=== PATIENT | male | born 1955 | race Hispanic/Latino ===

== ENCOUNTER 2017-11-26 05:13 | Observation (INO) | payer OTHER ==
[~2017-11-26] VITALS: Ht 182.9 cm; Wt 93.0 kg
[~2017-11-26 05:13] MED LIST: ALLO300T2 PO; AMLO1CAP12 PO; ASPI-1181 PO; ATOR20TA65 PO; NAPR-1023 PO; OMEP40CA37 PO; cholesterol med PO
[2017-11-26 05:37] LABS: BASOPHILS % (AUTO) 0.9 % (0.0-5.0); EOSINOPHILS % (AUTO) 5.2 % (0.0-8.0); MEAN CORPUSCULAR HEMOGLOBIN 32.4 pg (27.0-33.0); MEAN CORPUSCULAR VOLUME 92.5 fL (79-99); MONOCYTES % (AUTO) 8.7 % (3.0-13.0); NEUTROPHILS % (AUTO) 57.2 % (40.0-77.0); PLATELET COUNT (AUTO) 243 K/uL (130-400); RED BLOOD CELL COUNT(AUTO) 4.54 MIL/uL (4.50-6.20); RED CELL DISTRIBUTION WIDTH 12.9 % (11.0-15.5); WHITE BLOOD COUNT (AUTO) 5.8 K/uL (4.8-10.8)
[2017-11-26 05:45] LABS: POTASSIUM 3.5 mmol/L (3.5-5.1)
[2017-11-26 05:50] LABS: ALBUMIN 4.1 g/dL (3.5-5.0); BILIRUBIN,TOTAL 0.6 mg/dL (0.2-1.0)
[2017-11-26] MEDS ORDERED: ONDANSETRON HCL 4 MG/2 ML VIAL ONE (07:16)
[2017-11-26] MEDS ORDERED: FENTANYL CITRATE PF 50 MCG/1 ML 2ML VIAL ONE (07:17)
[2017-11-26 07:45] VITALS: BP 158/86
[2017-11-26] MEDS ORDERED: PHENYLEPHRINE HCL 10 MG/ML 1ML VIAL IV ONE (07:56)
[2017-11-26] MEDS ORDERED: SODIUM CHLORIDE 0.9% 1000ML 1,000 ML IV ONE (09:27)
[2017-11-26] MEDS ORDERED: FAMOTIDINE 20MG TAB 20 MG TAB ONE (09:27)
[2017-11-26] MEDS ORDERED: SODIUM CHLORIDE 0.9% 1000ML 1,000 ML IV SCH (09:45)
[2017-11-26] MEDS ORDERED: MORPHINE SULFATE 2 MG/ML 1ML SYG IVP PRN (11:15)
[2017-11-26] MEDS ORDERED: FAMOTIDINE/PF 20 MG/2 ML VIAL IV SCH (21:00)
== END 2017-11-26 16:19 | disposition home or self-care (01) ==
LOC: EDH 05:13 → EDHIP 07:35
PROVIDERS: ADMIT Family Medicine; ATTEND Family Medicine
DX: K21.0 Gastro-esophageal reflux disease with esophagitis (principal); K25.9 Gastric ulcer, unspecified as acute or chronic, without hemorrhage or perforation; K26.9 Duodenal ulcer, unspecified as acute or chronic, without hemorrhage or perforation; I10 Essential (primary) hypertension; E78.5 Hyperlipidemia, unspecified; M10.9 Gout, unspecified; T18.108A Unspecified foreign body in esophagus causing other injury, initial encounter; X58.XXXA Exposure to other specified factors, initial encounter; Y93.89 Activity, other specified; Y92.89 Other specified places as the place of occurrence of the external cause; Y99.8 Other external cause status; Z96.698 Presence of other orthopedic joint implants
CPT/HCPCS: 36415; 43239; 80053; 82550; 84484; 85025; 88305; 88312; 93005; 99285; G0378 ×9; J2370; J2405; J3010; J7030

== ENCOUNTER 2017-12-13 06:01 | Emergency (ER) | payer OTHER ==
[2017-12-13] MEDS ORDERED: GLUCAGON 1MG KIT 1 MG ML ONE (06:27)
[2017-12-13 07:37] LABS: BASOPHILS % (AUTO) 0.9 % (0.0-5.0); EOSINOPHILS % (AUTO) 5.7 % (0.0-8.0); HEMATOCRIT 43.4 % (42-54); LYMPHOCYTES % (AUTO) 29.3 % (21.0-51.0); MEAN CORPUSCULAR HEMOGLOBIN 32.3 pg (27.0-33.0); MEAN CORPUSCULAR HGB CONC 34.6 g/dL (32.0-36.0); MEAN CORPUSCULAR VOLUME 93.2 fL (79-99); MONOCYTES % (AUTO) 9.5 % (3.0-13.0); NEUTROPHILS % (AUTO) 54.6 % (40.0-77.0); PLATELET COUNT (AUTO) 247 K/uL (130-400); RED BLOOD CELL COUNT(AUTO) 4.65 MIL/uL (4.50-6.20); RED CELL DISTRIBUTION WIDTH 13.1 % (11.0-15.5); WHITE BLOOD COUNT (AUTO) 6.2 K/uL (4.8-10.8)
[2017-12-13 08:33] LABS: CREATININE 0.9 mg/dL (0.5-1.5); POTASSIUM 3.9 mmol/L (3.5-5.1)
[2017-12-13 08:37] LABS: BILIRUBIN,TOTAL 0.6 mg/dL (0.2-1.0); TOTAL PROTEIN, SERUM 7.8 g/dL (6.0-8.3)
[2017-12-13] MEDS ORDERED: FENTANYL CITRATE PF 50 MCG/1 ML 2ML VIAL ONE (08:51)
[2017-12-13] MEDS ORDERED: PROPOFOL 10 MG/ML 20ML VIAL IV ONE (08:51)
== END 2017-12-13 10:28 | disposition home or self-care (01) ==
LOC: EDH 06:01
DX: T18.128A Food in esophagus causing other injury, initial encounter (principal); I10 Essential (primary) hypertension; X58.XXXA Exposure to other specified factors, initial encounter; Y93.89 Activity, other specified; Y92.89 Other specified places as the place of occurrence of the external cause; Y99.8 Other external cause status
CPT/HCPCS: 36415; 43247; 80053; 85025; 96374; 99284; J1610; J2704; J3010

== ENCOUNTER 2018-04-14 06:17 | Day surgery (SDC) | payer OTHER ==
[2018-04-12 15:47] VITALS: BP 100/62
[2018-04-12 15:56] LABS: BASOPHILS % (AUTO) 0.9 % (0.0-5.0); EOSINOPHILS % (AUTO) 2.1 % (0.0-8.0); HEMATOCRIT 40.2 % (42-54); LYMPHOCYTES % (AUTO) 25.7 % (21.0-51.0); MEAN CORPUSCULAR HEMOGLOBIN 32.3 pg (27.0-33.0); MEAN CORPUSCULAR HGB CONC 34.9 g/dL (32.0-36.0); MEAN CORPUSCULAR VOLUME 92.4 fL (79-99); MONOCYTES % (AUTO) 8.8 % (3.0-13.0); NEUTROPHILS % (AUTO) 62.5 % (40.0-77.0); PLATELET COUNT (AUTO) 223 K/uL (130-400); RED BLOOD CELL COUNT(AUTO) 4.35 MIL/uL (4.50-6.20); RED CELL DISTRIBUTION WIDTH 13.1 % (11.0-15.5); WHITE BLOOD COUNT (AUTO) 6.2 K/uL (4.8-10.8)
[2018-04-12 15:58] LABS: APPEARANCE,URINE Clear (CLEAR); BILIRUBIN,URINE Negative (NEGATIVE); COLOR,URINE Yellow (YELLOW); GLUCOSE, URINE (UA) Negative (NEGATIVE); KETONES,URINE Negative (NEGATIVE); LEUKOCYTE ESTERASE ,URINE Negative (NEGATIVE); NITRATE,URINE Negative (NEGATIVE); OCCULT BLOOD,URINE Negative (NEGATIVE); PH,URINE 5.5 (5.0-8.0); PROTEIN,URINE Negative (NEGATIVE)
[2018-04-12 16:10] LABS: CREATININE 1.2 mg/dL (0.5-1.5); POTASSIUM 4.2 mmol/L (3.5-5.1)
[~2018-04-14] VITALS: Ht 182.9 cm; Wt 94.3 kg
[2018-04-14] VITALS (17 sets, daily range): BP systolic 74–111; BP diastolic 46–92
[~2018-04-14 06:17] MED LIST changes: -ALLO300T2 PO; -ASPI-1181 PO; -ATOR20TA65 PO; +CEFAZOLIN SODIUM 1 GM VIAL IVP SCH; -OMEP40CA37 PO; -cholesterol med PO
[2018-04-14] MEDS ORDERED: LACTATED RINGERS 1000ML 1,000 ML IV ONE (07:05)
[2018-04-14] MEDS ORDERED: ROPIVACAINE 0.5% 5MG/ML 30ML IJ ONE (07:51)
[2018-04-14] MEDS ORDERED: PROPOFOL 10 MG/ML 20ML VIAL IV ONE (07:52)
[2018-04-14] MEDS ORDERED: FENTANYL CITRATE PF 50 MCG/1 ML 2ML VIAL ONE (07:52)
[2018-04-14] MEDS ORDERED: MIDAZOLAM HCL 1 MG/ML 2ML VIAL ONE (07:52)
[2018-04-14] MEDS ORDERED: MEPERIDINE-PF 25 MG/ML SYG ONE (10:04)
== END 2018-04-14 12:36 | disposition home or self-care (01) ==
LOC: DAH 06:17
PROVIDERS: ATTEND Surgery
DX: K40.20 Bilateral inguinal hernia, without obstruction or gangrene, not specified as recurrent (principal); I10 Essential (primary) hypertension; M10.9 Gout, unspecified
CPT/HCPCS: 36415; 49505; 80048; 81003; 85025; A4450; A4452; C1729; C1781; J2175; J2250; J2704; J2795; J3010; J7120

== ENCOUNTER 2019-01-13 09:39 | Day surgery (SDC) | payer OTHER ==
[2019-01-12 16:26] LABS: CREATININE 1.3 mg/dL (0.5-1.5); POTASSIUM 4.1 mmol/L (3.5-5.1)
[2019-01-12 16:28] VITALS: BP 121/75
[~2019-01-13] VITALS: Ht 182.9 cm; Wt 100.7 kg
[2019-01-13] VITALS (16 sets, daily range): BP systolic 96–137; BP diastolic 61–87
[~2019-01-13 09:39] MED LIST changes: +AMLO-127 PO; -AMLO1CAP12 PO; +ATOR20TA65 PO; +CEFAZOLIN 3GM /D5W 100ML 100 ML IV SCH; -CEFAZOLIN SODIUM 1 GM VIAL IVP SCH; +TIZA4TAB4 PO; +TYL3 PO
[2019-01-13] MEDS ORDERED: CEFAZOLIN SODIUM 1 GM VIAL ONE (12:31)
[2019-01-13] MEDS ORDERED: LACTATED RINGERS 1000ML 1,000 ML IV ONE (12:31)
[2019-01-13] MEDS ORDERED: LIDOCAINE PF 2% 5ML ABBOJECT ONE (13:54)
[2019-01-13] MEDS ORDERED: FENTANYL CITRATE PF 50 MCG/1 ML 2ML VIAL ONE ×2 (13:55→14:58)
[2019-01-13] MEDS ORDERED: PROPOFOL 10 MG/ML 20ML VIAL IV ONE (13:55)
[2019-01-13] MEDS ORDERED: MIDAZOLAM HCL 1 MG/ML 2ML VIAL ONE (13:55)
[2019-01-13] MEDS ORDERED: ONDANSETRON HCL 4 MG/2 ML VIAL ONE (13:55)
[2019-01-13] MEDS ORDERED: DEXAMETHASONE SOD PHOSPHATE 10MG/ML 1ML VIAL ONE (13:55)
[2019-01-13] MEDS ORDERED: EPINEPHRINE 1 MG/ML 30ML VIAL IJ ONE (13:57)
[2019-01-13] MEDS ORDERED: ROCURONIUM 10MG/1ML SYR 10 MG/ML ML ONE ×2 (14:03→14:41)
[2019-01-13] MEDS ORDERED: ROPIVACAINE 0.5% 5MG/ML 30ML IJ ONE (14:05)
[2019-01-13] MEDS ORDERED: EPHEDRINE SULFATE 50 MG/ML AMPULE ONE (14:14)
[2019-01-13] MEDS ORDERED: PHENYLEPHRINE HCL 10 MG/ML 1ML VIAL IV ONE ×2 (14:25→14:27)
[2019-01-13] MEDS ORDERED: GLYCOPYRROLATE 1 MG/5 ML SYRINGE ONE (15:05)
[2019-01-13] MEDS ORDERED: NEOSTIGMINE 5MG/5ML SYR IV ONE (15:45)
[2019-01-13] MEDS ORDERED: HYDR-4457 PO (16:00)
[2019-01-13] MEDS ORDERED: CEPH500B PO (16:00)
--- NOTE | 2019-01-13 16:56 | NUR ---
RECEIVE PT RECEIVED FROM PACU VIA STRETCHER AWAKE ALERT ORIENTED X3. OPSITE/GAUZE DRESSING X3 TO RIGHT SHOULDER DRY AND INTACT, NO OOZING NOTED. SLING TO RIGHT ARM IN PLACE. SENSATION TO RIGHT ARM/HAND INTACT, PT ABLE TO MOVE FINGERS, GRASP WEAK, CAPILLARY REFILLS BRISK. ICE PACK APPLIED TO SITE. CALL CUNHA WITHIN REACH, WILL CALL FOR GIRL FRIEND TO COME IN TO ROOM.
--- NOTE | 2019-01-13 17:35 | NUR ---
NOTIFY PT STATES HE FEELS SOME TIGHTNESS TO RIGHT SHOULDER AREA, DENIES CHEST PAIN. NOTIFIED BARBI SOLO. ALSO NOTIFIED INSTRUMENT MAN PT'S HEART RATE IN THE MID TO HIGH 90'S. PT HAS NO OTHER COMPLAINTS EXCEPT THAT HE JUST FEELS WEAK. PT NOT IN ANY APPARENT DISTRESS. NO ORDERS, OKAY TO DISCHARGE.
--- NOTE | 2019-01-13 18:00 | NUR ---
ASSESS PT OFFERED ORAL FLUIDS AND CRACKERS. PT TOLERATED ORAL INTAKE WELL. PT STATES HE FEELS A LOT BETTER. NO MORE TIGHTNESS TO RIGHT SHOULDER AREA, DENIES CHEST PAIN. NOT IN ANY APPARENT DISTRESS.
--- NOTE | 2019-01-13 18:05 | NUR ---
DISCHARGE PT DISCHARGED VIA WHEELCHAIR WITH GIRL FRIEND. PT STABLE. NO COMPLAINTS MADE. STATED HE FEELS A LOT BETTER. NOT IN ANY APPARENT DISTRESS. DRESSINGS X3 TO RIGHT SHOULDER REMAINS DRY AND INTACT. DISCHARGE INSTRUCTIONS GIVEN TO GIRL FRIEND AND PT, BOTH VERBALIZED UNDERSTANDING. Addendum: 01/13/19 at 1939 by APOLONIA DOTSON RN RN ADDENDUM: INSTRUCTED PT AND TO CALL DR. MOORE 17/05 FOR ANY PROBLEMS, FOR ANY EMERGENCY,WORSENING OF SYMPTOMS, CALL DR. MOORE/CALL 911/GO TO EMERGENCY ROOM. VERBALIZED UNDERSTANDING.
== END 2019-01-13 18:05 | disposition home or self-care (01) ==
LOC: DAH 09:39
PROVIDERS: ATTEND Orthopaedic Surgery
DX: M75.101 Unspecified rotator cuff tear or rupture of right shoulder, not specified as traumatic (principal); M19.011 Primary osteoarthritis, right shoulder; Z68.30 Body mass index [BMI] 30.0-30.9, adult; I10 Essential (primary) hypertension; E66.9 Obesity, unspecified; Z98.890 Other specified postprocedural states; Z79.899 Other long term (current) drug therapy; M75.41 Impingement syndrome of right shoulder; E11.9 Type 2 diabetes mellitus without complications; E78.2 Mixed hyperlipidemia
CPT/HCPCS: 29824; 29826; 29827; 36415; 80048; A4218; A4565; A4649 ×5; A4930; A6204; C1763; G0168; J0171; J0690; J1100; J2001; J2250; J2370 ×2; J2405; J2704; J2710; J2795; J3010 ×2; J3490 ×2; J7120

== ENCOUNTER 2020-03-26 16:39 | Emergency (ER) | payer OTHER ==
[~2020-03-26 16:39] MED LIST changes: -AMLO-127 PO; +AMLO-96 PO; -CEFAZOLIN 3GM /D5W 100ML 100 ML IV SCH; +CEPH500B PO; +HYDR-4457 PO; -TIZA4TAB4 PO; +TIZA4TAB5 PO; -TYL3 PO
== END 2020-03-26 17:46 | disposition home or self-care (01) ==
LOC: EDH 16:39
DX: K02.9 Dental caries, unspecified (principal); I10 Essential (primary) hypertension; Z98.890 Other specified postprocedural states

== ENCOUNTER 2020-06-12 20:05 | Inpatient (IN) | payer OTHER ==
[~2020-06-12] VITALS: Ht 182.9 cm; Wt 92.3 kg
[2020-06-12 21:04] LABS: APPEARANCE,URINE Clear (CLEAR); BILIRUBIN,URINE Negative (NEGATIVE); COLOR,URINE Dark Yellow (YELLOW); GLUCOSE, URINE (UA) Negative (NEGATIVE); KETONES,URINE Negative (NEGATIVE); LEUKOCYTE ESTERASE ,URINE Small (NEGATIVE); NITRATE,URINE Negative (NEGATIVE); OCCULT BLOOD,URINE Negative (NEGATIVE); PROTEIN,URINE POS 1+ mg/dL (NEGATIVE)
[2020-06-12 21:04] LABS: BASOPHILS % (AUTO) 0.4 % (0.0-5.0); EOSINOPHILS % (AUTO) 1.6 % (0.0-8.0); HEMATOCRIT 40.6 % (42-54); LYMPHOCYTES % (AUTO) 26.3 % (21.0-51.0); MEAN CORPUSCULAR HEMOGLOBIN 31.4 pg (27.0-33.0); MEAN CORPUSCULAR HGB CONC 34.2 g/dL (32.0-36.0); MEAN CORPUSCULAR VOLUME 91.9 fL (79-99); MONOCYTES % (AUTO) 11.6 % (3.0-13.0); NEUTROPHILS % (AUTO) 58.5 % (40.0-77.0); PLATELET COUNT (AUTO) 296 K/uL (130-400); RED BLOOD CELL COUNT(AUTO) 4.42 MIL/uL (4.50-6.20); RED CELL DISTRIBUTION WIDTH 12.6 % (11.0-15.5); WHITE BLOOD COUNT (AUTO) 5.1 K/uL (4.8-10.8)
[2020-06-12 21:09] LABS: INR 0.93 (0.85-1.15); PARTIAL THROMBOPLASTIN TIME 26.8 SEC (26.3-35.5); PROTHROMBIN TIME 10.1 SEC (9.6-11.6)
[2020-06-12 21:23] LABS: CARBON DIOXIDE 26 mmol/L (21-32); CHLORIDE 104 mmol/L (101-111); CREATININE 0.9 mg/dL (0.5-1.5); GLOMERULAR FILTR. RATE CALC 91 mL/min (>60); GLUCOSE,RANDOM 124 mg/dL (70-105); POTASSIUM 3.3 mmol/L (3.5-5.1); SODIUM SERUM 141 mmol/L (136-145); UREA NITROGEN, BLOOD 15 mg/dL (7-18)
[2020-06-12 21:32] LABS: RBC,URINE 0-1 /HPF (0-1)
[2020-06-12 21:33] LABS: BACTERIA,URINE Few /HPF (None Seen); MUCUS,URINE Moderate LPF (None Seen); SQUAMOUS EPITHELIAL CELL,UR Few /HPF (0-2)
[2020-06-12 21:34] LABS: ALANINE AMINOTRANSFERASE 248 U/L (12-78); ASPARTATE AMINOTRANSFERASE 216 U/L (10-37); CREATINE KINASE, TOTAL 32 U/L (21-232); MYOGLOBIN 19 ng/mL (10-92); TOTAL PROTEIN, SERUM 8.3 g/dL (6.0-8.3); TROPONIN I < 0.04 ng/mL (0.00-0.06)
[2020-06-12] MEDS ORDERED: DEXAMETHASONE SOD PHOSPHATE 10MG/ML 1ML VIAL ONE (21:36)
[2020-06-12] MEDS ORDERED: POTASSIUM BICARB/CIT AC 25 MEQ TABLET.EFF ONE (21:36)
[2020-06-12] MEDS ORDERED: DOXYCYCLINE 100MG+NS 250ML 250 ML IV ONE (21:36)
[2020-06-12] MEDS ORDERED: CEFTRIAXONE SODIUM 1 GM ONE (21:37)
[2020-06-12] MEDS ORDERED: LACTULOSE 20 GM/30 ML UDCUP PO PRN (22:15)
[2020-06-12] MEDS ORDERED: ZOLPIDEM TARTRATE 5 MG TAB PO PRN (22:15)
[2020-06-12] MEDS ORDERED: MORPHINE SULFATE 4 MG/1ML SYG IV PRN (22:15)
[2020-06-12] MEDS ORDERED: DiphenhydrAMINE HCL 50 MG/ML VIAL IV PRN (22:15)
[2020-06-12] MEDS ORDERED: MORPHINE SULFATE 2 MG/ML 1ML SYG IV PRN (22:15)
[2020-06-12] MEDS ORDERED: GUAIFENESIN-DM 200/20 MG 10 ML PO PRN (22:15)
[2020-06-12] MEDS ORDERED: ONDANSETRON HCL 4 MG/2 ML VIAL IV PRN (22:15)
[2020-06-12] MEDS ORDERED: DIPHENHYDRAMINE HCL 25 MG CAPSULE PO PRN (22:15)
[2020-06-12] MEDS ORDERED: ACETAMINOPHEN 325 MG TAB PO PRN ×2 (22:15)
[2020-06-12] MEDS ORDERED: MAG HYDROX/AL HYDROX/SIMETH ES 30 ML SUSP UDCUP PO PRN (22:15)
[2020-06-12] MEDS ORDERED: MAG HYDROX/AL HYDROX/SIMETH 30 ML, LIDOCAINE HCL 2% VISCOUS 30 ML, DIPHENHYDRAMINE HCL ... PO PRN ×3 (22:15)
[2020-06-12] MEDS ORDERED: NITROGLYCERIN 0.4 MG SL TAB SL PRN (22:15)
[2020-06-12] MEDS ORDERED: LIDOCAINE HCL 2% VISCOUS 30 ML, MAG HYDROX/AL HYDROX/SIMETH 30 ML, BELLADONNA-PHENOBARB... PO PRN ×3 (22:15)
[2020-06-12] MEDS ORDERED: BENZONATATE 100 MG CAPSULE PO PRN (22:15)
[2020-06-12] MEDS ORDERED: IOHEXOL 350 MG/ML 100ML INFUS..BTL IV ONE (22:33)
[2020-06-13] VITALS (9 sets, daily range): BP systolic 111–131; BP diastolic 72–93
[2020-06-13] MEDS ORDERED: MAGNESIUM 2GM PREMIX 50ML 50 ML IV SCH (01:15)
[2020-06-13] MEDS ORDERED: DEXAMETHASONE SOD PHOSPHATE 4 MG/ML 1ML VIAL IVP SCH (01:45)
[2020-06-13] MEDS ORDERED: ERGOCALCIFEROL (VITAMIN D2) 50,000 UNIT CAPSULE PO ONE (01:45)
[2020-06-13] MEDS: CEFTRIAXONE SODIUM 1 GM IVP SCH ×2 (01:45→13:26)
[2020-06-13] MEDS: DOXYCYCLINE 100MG+NS 250ML IV SCH ×2 (02:38→15:20)
[2020-06-13] MEDS: LACTATED RINGERS 1000ML 1,000 ML IV SCH ×2 (02:54→04:42)
[2020-06-13 05:31] LABS: BASOPHILS % (AUTO) 0.4 % (0.0-5.0); HEMATOCRIT 40.9 % (42-54); MEAN CORPUSCULAR HEMOGLOBIN 30.9 pg (27.0-33.0); MEAN CORPUSCULAR HGB CONC 33.5 g/dL (32.0-36.0); MEAN CORPUSCULAR VOLUME 92.1 fL (79-99); MONOCYTES % (AUTO) 4.8 % (3.0-13.0); NEUTROPHILS % (AUTO) 68.9 % (40.0-77.0); PLATELET COUNT (AUTO) 308 K/uL (130-400); RED BLOOD CELL COUNT(AUTO) 4.44 MIL/uL (4.50-6.20); RED CELL DISTRIBUTION WIDTH 12.5 % (11.0-15.5); WHITE BLOOD COUNT (AUTO) 4.8 K/uL (4.8-10.8)
[2020-06-13 06:05] LABS: ALANINE AMINOTRANSFERASE 222 U/L (12-78); ALBUMIN 2.9 g/dL (3.5-5.0); ASPARTATE AMINOTRANSFERASE 176 U/L (10-37); BILIRUBIN,TOTAL 0.5 mg/dL (0.2-1.0); CARBON DIOXIDE 25 mmol/L (21-32); CHLORIDE 104 mmol/L (101-111); CREATINE KINASE, TOTAL 28 U/L (21-232); GLOMERULAR FILTR. RATE CALC 80 mL/min (>60); GLUCOSE,RANDOM 142 mg/dL (70-105); LACTATE DEHYDROGENASE 261 U/L (81-234); MYOGLOBIN 25 ng/mL (10-92); PHOSPHORUS 3.5 mg/dL (2.5-4.9); SODIUM SERUM 138 mmol/L (136-145); TOTAL PROTEIN, SERUM 8.3 g/dL (6.0-8.3); TROPONIN I < 0.04 ng/mL (0.00-0.06); UREA NITROGEN, BLOOD 16 mg/dL (7-18)
[2020-06-13] MEDS ORDERED: ENOXAPARIN SODIUM 40 MG/0.4 ML SYRINGE SQ SCH (09:00)
[2020-06-13] MEDS: FAMOTIDINE/PF 20 MG/2 ML VIAL IV SCH ×2 (09:14→21:19)
[2020-06-13] MEDS: ASCORBIC ACID 500 MG TAB PO SCH (09:14)
[2020-06-13] MEDS: ZINC SULFATE 220 CAPSULE PO SCH (09:14)
[2020-06-13] MEDS: AMLODIPINE-BENAZEPRIL 5-20 MG PO SCH (10:13)
--- NOTE | 2020-06-13 12:43 | NUR ---
YUSUF PLAN VISITED WITH PATIENT. SPOKE TO PATIENT OVER THE PHONE SINCE HE IS IN THE COVID UNIT. SAID HE HAD ALREADY ANSWERED SAME QUESTIONS WITH SOMEONE ELSE. NO CHANGES. LIVES ALONE AND WORKS. GAVE FEDERICO FOR OXYGEN IF NEEDED. GOT IZABELLA NURSE TO COSIGN FORM. FORD WILL CONTINUE TO MONITOR. Addendum: 06/13/20 at 1245 by KAMLESH JOYCE RN CM Amended: Links added.
[2020-06-13] MEDS ORDERED: SODIUM CHLORIDE 0.9% 250 ML IV ONE (12:47)
[2020-06-13] MEDS ORDERED: LACTATED RINGERS 1000ML 1,000 ML IV SCH (13:45)
--- NOTE | 2020-06-13 14:04 | NUR ---
CHART CHECK COMPLETED. Pt IS A 65 Y.O. MALE ADMITTED SECONDARY TO COVID19 PNEUMONIA, HYPOXEMIA. Pt HAS A PAST MEDICAL HISTORY SIGNIFICANT FOR HYPERTENSION. Pt CURRENTLY ON CLEAR LIQUID DIET. PLEASE REQUEST FORMAL SKILLED SPEECH/SWALLOW EVALUATION IF Pt PRESENTS WITH +S/S OF ASPIRATION SUCH COUGH RESPONSE, THROAT CLEAR, OR WET VOCAL QUALITY DURING P.O. Addendum: 06/13/20 at [address] Amended: Links added.
[2020-06-13 14:39] LABS: CREATINE KINASE, TOTAL 29 U/L (21-232); MYOGLOBIN 24 ng/mL (10-92); TROPONIN I < 0.04 ng/mL (0.00-0.06)
--- NOTE | 2020-06-13 14:39 | NUR ---
CONVALESCENT PLASMA PATIENT RECEIVED PLASMA STARTING AT APPROX 1400 HOURS AND ENDING AT APPROX 1430 HOURS. PATIENT TOLERATED WITHOUT INCIDENT.
[2020-06-13] MEDS: ENOXAPARIN SODIUM 100 MG/1 ML SQ SCH (21:19)
[2020-06-14 00:16] VITALS: BP 125/76
[2020-06-14 03:58] LABS: ABG BASE EXCESS 0.1 mmol/L (-2.0-3.0); ABG HCO3 23.7 mmol/L (21.0-28.0); ABG OXYGEN SATURATION 97.5 % (95.0-99.0); ABG PCO2 35 mmHg (35-48)
[2020-06-14 04:18] VITALS: BP 105/69
[2020-06-14 05:20] LABS: BASOPHILS % (AUTO) 0.4 % (0.0-5.0); EOSINOPHILS % (AUTO) 0.5 % (0.0-8.0); HEMATOCRIT 38.9 % (42-54); LYMPHOCYTES % (AUTO) 18.8 % (21.0-51.0); MEAN CORPUSCULAR HEMOGLOBIN 30.8 pg (27.0-33.0); MEAN CORPUSCULAR HGB CONC 33.7 g/dL (32.0-36.0); MEAN CORPUSCULAR VOLUME 91.5 fL (79-99); MONOCYTES % (AUTO) 11.8 % (3.0-13.0); NEUTROPHILS % (AUTO) 66.8 % (40.0-77.0); PLATELET COUNT (AUTO) 313 K/uL (130-400); RED BLOOD CELL COUNT(AUTO) 4.25 MIL/uL (4.50-6.20); RED CELL DISTRIBUTION WIDTH 12.5 % (11.0-15.5); WHITE BLOOD COUNT (AUTO) 7.7 K/uL (4.8-10.8)
[2020-06-14 05:33] LABS: ALANINE AMINOTRANSFERASE 191 U/L (12-78); ALBUMIN 2.9 g/dL (3.5-5.0); ASPARTATE AMINOTRANSFERASE 105 U/L (10-37); BILIRUBIN,TOTAL 0.5 mg/dL (0.2-1.0); CARBON DIOXIDE 28 mmol/L (21-32); CHLORIDE 105 mmol/L (101-111); CREATININE 0.9 mg/dL (0.5-1.5); GLOMERULAR FILTR. RATE CALC 91 mL/min (>60); GLUCOSE,RANDOM 89 mg/dL (70-105); LACTATE DEHYDROGENASE 228 U/L (81-234); PHOSPHORUS 4.1 mg/dL (2.5-4.9); POTASSIUM 4.1 mmol/L (3.5-5.1); SODIUM SERUM 141 mmol/L (136-145); TOTAL PROTEIN, SERUM 7.6 g/dL (6.0-8.3); UREA NITROGEN, BLOOD 13 mg/dL (7-18)
[2020-06-14] MEDS: AMLODIPINE-BENAZEPRIL 5-20 MG PO SCH (09:00)
[2020-06-14] MEDS ORDERED: DOXYCYCLINE 100MG+NS 250ML IV SCH (09:00)
[2020-06-14 09:02] VITALS: BP 112/73
[2020-06-14] MEDS: DOXYCYCLINE 100MG+NS 250ML 250 ML IV SCH ×2 (09:36→21:03)
[2020-06-14] MEDS: CEFTRIAXONE SODIUM 1 GM IVP SCH ×2 (09:38→21:03)
[2020-06-14] MEDS: FAMOTIDINE/PF 20 MG/2 ML VIAL IV SCH ×2 (09:38→21:03)
[2020-06-14] MEDS: ASCORBIC ACID 500 MG TAB PO SCH (09:38)
[2020-06-14] MEDS: DEXAMETHASONE SOD PHOSPHATE 4 MG/ML 1ML VIAL IVP SCH (09:38)
[2020-06-14] MEDS: ZINC SULFATE 220 CAPSULE PO SCH (09:38)
[2020-06-14] MEDS: ENOXAPARIN SODIUM 100 MG/1 ML SQ SCH ×2 (10:02→21:04)
[2020-06-14 12:00] VITALS: BP 118/75
[2020-06-14 16:00] VITALS: BP 108/84
[2020-06-14 20:31] VITALS: BP 105/71
[2020-06-15] VITALS (7 sets, daily range): BP systolic 68–129; BP diastolic 68–89
[2020-06-15 05:07] LABS: BASOPHILS % (AUTO) 0.1 % (0.0-5.0); EOSINOPHILS % (AUTO) 0.3 % (0.0-8.0); HEMATOCRIT 39.2 % (42-54); LYMPHOCYTES % (AUTO) 15.6 % (21.0-51.0); MEAN CORPUSCULAR HEMOGLOBIN 30.8 pg (27.0-33.0); MEAN CORPUSCULAR HGB CONC 33.4 g/dL (32.0-36.0); MONOCYTES % (AUTO) 10.8 % (3.0-13.0); NEUTROPHILS % (AUTO) 70.5 % (40.0-77.0); PLATELET COUNT (AUTO) 371 K/uL (130-400); RED BLOOD CELL COUNT(AUTO) 4.26 MIL/uL (4.50-6.20); RED CELL DISTRIBUTION WIDTH 12.4 % (11.0-15.5); WHITE BLOOD COUNT (AUTO) 7.4 K/uL (4.8-10.8)
[2020-06-15 05:37] LABS: ALANINE AMINOTRANSFERASE 139 U/L (12-78); ALBUMIN 2.9 g/dL (3.5-5.0); ASPARTATE AMINOTRANSFERASE 61 U/L (10-37); BILIRUBIN,TOTAL 0.4 mg/dL (0.2-1.0); CARBON DIOXIDE 25 mmol/L (21-32); CHLORIDE 105 mmol/L (101-111); CREATININE 1.1 mg/dL (0.5-1.5); GLOMERULAR FILTR. RATE CALC 72 mL/min (>60); GLUCOSE,RANDOM 110 mg/dL (70-105); LACTATE DEHYDROGENASE 183 U/L (81-234); PHOSPHORUS 3.9 mg/dL (2.5-4.9); SODIUM SERUM 141 mmol/L (136-145); TOTAL PROTEIN, SERUM 7.7 g/dL (6.0-8.3); UREA NITROGEN, BLOOD 19 mg/dL (7-18)
[2020-06-15] MEDS: AMLODIPINE-BENAZEPRIL 5-20 MG PO SCH (10:27)
[2020-06-15] MEDS: CEFTRIAXONE SODIUM 1 GM IVP SCH ×2 (10:27→21:01)
[2020-06-15] MEDS: ASCORBIC ACID 500 MG TAB PO SCH (10:28)
[2020-06-15] MEDS: ZINC SULFATE 220 CAPSULE PO SCH (10:28)
[2020-06-15] MEDS: FAMOTIDINE/PF 20 MG/2 ML VIAL IV SCH ×2 (10:29→21:01)
[2020-06-15] MEDS: DEXAMETHASONE SOD PHOSPHATE 4 MG/ML 1ML VIAL IVP SCH (10:29)
[2020-06-15] MEDS: DOXYCYCLINE 100MG+NS 250ML 250 ML IV SCH ×2 (10:30→21:01)
[2020-06-15] MEDS: ENOXAPARIN SODIUM 100 MG/1 ML SQ SCH ×2 (10:31→21:02)
[2020-06-15] MEDS ORDERED: DEXAMETHASONE 4 MG TAB PO SCH (11:15)
--- NOTE | 2020-06-15 11:56 | NUR ---
PT UP WALKING ROOM AIR NO DISTRESS OCCASIONAL SOB, AWARE WILL NEED TO TAKE BREAKS WHILE UP AMBULATING.
--- NOTE | 2020-06-15 16:10 | NUR ---
INITIAL SW spoke with patient's son, Kapil Hood. Another emergency contact is son, Maulik Barth, [phone]. Patient lives with his sister. No home services. DME: [facility]. Patient is independent with ADL's and drives. PCP is Dr. Kamaljit Caba. Pharmacy is any pharmacy is [place] as per son. No safety concerns voiced by son of patient returning home upon discharge. DCP is home. Addendum: 06/15/20 at 1612 by ANUSHKA CHRISTOPHER SS Amended: Links added.
--- NOTE | 2020-06-15 16:13 | NUR ---
EMERGENCY CONTACTS SONS: NOMI AWAN - [phone] TORRES AWAN - [phone]
[2020-06-16 03:42] VITALS: BP 114/69
[2020-06-16 05:15] LABS: BASOPHILS % (AUTO) 0.3 % (0.0-5.0); EOSINOPHILS % (AUTO) 0.1 % (0.0-8.0); HEMATOCRIT 39.2 % (42-54); LYMPHOCYTES % (AUTO) 15.4 % (21.0-51.0); MEAN CORPUSCULAR HEMOGLOBIN 30.4 pg (27.0-33.0); MEAN CORPUSCULAR HGB CONC 33.4 g/dL (32.0-36.0); MONOCYTES % (AUTO) 12.7 % (3.0-13.0); NEUTROPHILS % (AUTO) 68.7 % (40.0-77.0); PLATELET COUNT (AUTO) 376 K/uL (130-400); RED BLOOD CELL COUNT(AUTO) 4.31 MIL/uL (4.50-6.20); RED CELL DISTRIBUTION WIDTH 12.4 % (11.0-15.5); WHITE BLOOD COUNT (AUTO) 7.8 K/uL (4.8-10.8)
[2020-06-16 05:31] LABS: CREATININE 0.9 mg/dL (0.5-1.5); POTASSIUM 3.6 mmol/L (3.5-5.1)
[2020-06-16] MEDS: DOXYCYCLINE 100MG+NS 250ML 250 ML IV SCH ×2 (08:20→20:13)
[2020-06-16] MEDS: ASCORBIC ACID 500 MG TAB PO SCH (08:20)
[2020-06-16] MEDS: FAMOTIDINE/PF 20 MG/2 ML VIAL IV SCH ×2 (08:20→20:14)
[2020-06-16] MEDS: DEXAMETHASONE 4 MG TAB PO SCH (08:20)
[2020-06-16] MEDS: AMLODIPINE-BENAZEPRIL 5-20 MG PO SCH (08:21)
[2020-06-16] MEDS: CEFTRIAXONE SODIUM 1 GM IVP SCH ×2 (08:21→20:14)
[2020-06-16] MEDS: ZINC SULFATE 220 CAPSULE PO SCH (08:21)
[2020-06-16] MEDS: ENOXAPARIN SODIUM 100 MG/1 ML SQ SCH ×2 (08:24→20:14)
[2020-06-16 08:44] VITALS: BP 113/80
[2020-06-16 12:00] VITALS: BP 104/66
[2020-06-16 16:00] VITALS: BP 109/78
[2020-06-16 20:23] VITALS: BP 129/79
[2020-06-17 00:12] VITALS: BP 112/72
[2020-06-17 04:13] VITALS: BP 111/68
[2020-06-17 07:48] LABS: ALANINE AMINOTRANSFERASE 183 U/L (12-78); ASPARTATE AMINOTRANSFERASE 73 U/L (10-37); BILIRUBIN,TOTAL 0.5 mg/dL (0.2-1.0); CARBON DIOXIDE 26 mmol/L (21-32); CHLORIDE 108 mmol/L (101-111); GLOMERULAR FILTR. RATE CALC 80 mL/min (>60); GLUCOSE,RANDOM 106 mg/dL (70-105); LACTATE DEHYDROGENASE 176 U/L (81-234); POTASSIUM 3.5 mmol/L (3.5-5.1); SODIUM SERUM 141 mmol/L (136-145); TOTAL PROTEIN, SERUM 7.4 g/dL (6.0-8.3); UREA NITROGEN, BLOOD 18 mg/dL (7-18)
[2020-06-17 08:59] VITALS: BP 130/76
[2020-06-17] MEDS: ZINC SULFATE 220 CAPSULE PO SCH (09:00)
[2020-06-17] MEDS: PHARMACY COMMUNICATION**REMDESIVIR ORDER MISC SCH ×2 (09:00→15:00)
[2020-06-17] MEDS: AMLODIPINE-BENAZEPRIL 5-20 MG PO SCH (09:45)
[2020-06-17] MEDS: CEFTRIAXONE SODIUM 1 GM IVP SCH (09:45)
[2020-06-17] MEDS: FAMOTIDINE/PF 20 MG/2 ML VIAL IV SCH (09:45)
[2020-06-17] MEDS: ASCORBIC ACID 500 MG TAB PO SCH (09:45)
[2020-06-17] MEDS: ENOXAPARIN SODIUM 100 MG/1 ML SQ SCH (09:45)
[2020-06-17] MEDS: DEXAMETHASONE 4 MG TAB PO SCH (09:45)
[2020-06-17] MEDS: DOXYCYCLINE 100MG+NS 250ML 250 ML IV SCH (09:46)
[2020-06-17 11:31] VITALS: BP 110/66
[2020-06-17 16:34] VITALS: BP 91/62
--- NOTE | 2020-06-17 18:43 | NUR ---
RX CALLED IN TO [facility], YUSUF INST GIVEN TO PATIENT USING TEACHBACK
== END 2020-06-17 18:50 | disposition home or self-care (01) | DRG 177 ==
LOC: EDH 20:05 → EDHIP 22:02 → 2AH 06-13 01:06
PROVIDERS: ADMIT Internal Medicine; ATTEND Internal Medicine
PROC: XW13325 Transfusion of Convalescent Plasma (Nonautologous) into Peripheral Vein, Percutaneous Approach, New Technology Group 5 (ICD-10-PCS; principal; 2020-06-13)
DX: U07.1 COVID-19 (principal); J12.89 Other viral pneumonia; J96.01 Acute respiratory failure with hypoxia; E44.0 Moderate protein-calorie malnutrition; N39.0 Urinary tract infection, site not specified; B95.2 Enterococcus as the cause of diseases classified elsewhere; E66.9 Obesity, unspecified; F17.210 Nicotine dependence, cigarettes, uncomplicated; I10 Essential (primary) hypertension; Z82.0 Family history of epilepsy and other diseases of the nervous system; Z82.3 Family history of stroke; Z82.49 Family history of ischemic heart disease and other diseases of the circulatory system; Z82.5 Family history of asthma and other chronic lower respiratory diseases; Z83.3 Family history of diabetes mellitus; Z68.27 Body mass index [BMI] 27.0-27.9, adult
CPT/HCPCS: 36415; 36430; 36600; 71045; 71275; 80048; 80053; 81001; 82550; 82728; 82803; 83605; 83615; 83735; 83874; 84100; 84145; 84484; 85025; 85378; 85610; 85730; 86140; 86900; 86901; 86927; 87040; 87077; 87088; 87186; 93005; 94760; 99291; G0378; J0696; J1100; J1650; J3475; J3490; J7050; J7120; J8540; Q9967

== ENCOUNTER 2022-09-20 22:42 | Emergency (ER) | payer OTHER ==
[~2022-09-20] VITALS: Ht 182.9 cm; Wt 111.6 kg
[~2022-09-20 22:42] MED LIST changes: +AMLO-143 PO; -AMLO-96 PO; -CEPH500B PO; +TIZA-211 PO; -TIZA4TAB5 PO
[2022-09-21] MEDS ORDERED: OSEL75 PO (00:22)
[2022-09-21] MEDS ORDERED: IBUP-1493 PO (00:22)
[2022-09-21] MEDS ORDERED: ACETAMINOPHEN 500 MG TABLET PO ONE (00:30)
[2022-09-21 00:46] VITALS: BP 115/64
== END 2022-09-21 01:07 | disposition home or self-care (01) ==
LOC: EDH 22:42
DX: J10.1 Influenza due to other identified influenza virus with other respiratory manifestations (principal); Z20.822 Contact with and (suspected) exposure to COVID-19; I10 Essential (primary) hypertension; Z79.899 Other long term (current) drug therapy; Z98.890 Other specified postprocedural states
CPT/HCPCS: 99283; 87635; 87880; 87804 ×2; C9803

== ENCOUNTER 2023-04-21 18:26 | Emergency (ER) | payer OTHER ==
[~2023-04-21] VITALS: Ht 182.9 cm; Wt 108.9 kg
[~2023-04-21 18:26] MED LIST changes: +IBUP-1493 PO; +OSEL75 PO
[2023-04-21 18:58] VITALS: BP 135/76
[2023-04-21] MEDS ORDERED: CYCL10TA16 PO (20:24)
[2023-04-21] MEDS ORDERED: CYCLOBENZAPRINE HCL 10 MG TABLET PO ONE (20:30)
[2023-04-21] MEDS ORDERED: DEXAMETHASONE SOD PHOSPHATE 4 MG/ML 1ML VIAL IM SCH (20:30)
== END 2023-04-21 21:20 | disposition home or self-care (01) ==
LOC: EDH 18:26
DX: M54.31 Sciatica, right side (principal); I10 Essential (primary) hypertension; Z79.899 Other long term (current) drug therapy
CPT/HCPCS: 99283; 96372; J1100

== ENCOUNTER 2023-10-09 06:35 | Emergency (ER) | payer OTHER ==
[~2023-10-09] VITALS: Ht 182.9 cm; Wt 109.8 kg
[~2023-10-09 06:35] MED LIST changes: +CYCL10TA16 PO
[2023-10-09 07:05] LABS: RAPID GROUP A STREP negative (NEGATIVE)
[2023-10-09 07:10] LABS: SARS-CoV-2, RNA, NAAT NEGATIVE SARS CoV-2 (NEGATIVE)
[2023-10-09 07:16] LABS: INFLUENZA TYPE A Negative For Type A (NEGATIVE); INFLUENZA TYPE B Negative For Type B (NEGATIVE)
[2023-10-09] MEDS ORDERED: SOLU-MEDROL 125MG VIAL IM ONE (08:30)
[2023-10-09] MEDS ORDERED: ALBUTEROL 0.083% 2.5 MG/3 ML INH IH ONE (08:30)
[2023-10-09] MEDS ORDERED: GUAIFENESIN 600 MG TABLET.ER PO ONE (08:30)
[2023-10-09 08:40] VITALS: PULSE 82; RESP 18
[2023-10-09 08:41] LABS: BASOPHILS # (AUTO) 0.06 K/uL (0.00-0.20); BASOPHILS % (AUTO) 0.9 % (0.0-5.0); EOSINOPHILS # (AUTO) 0.23 K/uL (0.00-0.70); EOSINOPHILS % (AUTO) 3.3 % (0.0-8.0); HEMATOCRIT 43.3 % (42-54); IMMATURE GRANULOCYTE ABSOLUTE 0.05 K/uL (0-1); LYMPHOCYTES # (AUTO) 1.5 K/uL (1.0-4.8); LYMPHOCYTES % (AUTO) 21.3 % (21.0-51.0); MEAN CORPUSCULAR HEMOGLOBIN 31.1 pg (27.0-33.0); MEAN CORPUSCULAR HGB CONC 33.3 g/dL (32.0-36.0); MEAN CORPUSCULAR VOLUME 93.5 fL (79-99); MONOCYTES # (AUTO) 0.9 K/uL (0.1-1.0); MONOCYTES % (AUTO) 13.2 % (3.0-13.0); NEUTROPHILS # (AUTO) 4.2 K/uL (1.8-7.7); NEUTROPHILS % (AUTO) 60.6 % (40.0-77.0); PLATELET COUNT (AUTO) 228 K/uL (130-400); RED BLOOD CELL COUNT(AUTO) 4.63 MIL/uL (4.50-6.20); RED CELL DISTRIBUTION WIDTH 13.2 % (11.0-15.5); WHITE BLOOD COUNT (AUTO) 6.9 K/uL (4.8-10.8)
[2023-10-09] MEDS ORDERED: ALBUHFA IH (09:30)
[2023-10-09] MEDS ORDERED: FLUT16H NASAL (09:30)
[2023-10-09] MEDS ORDERED: AUD IH (09:30)
[2023-10-09] MEDS ORDERED: CETI10CA5 PO (09:30)
[2023-10-09 10:17] VITALS: BP 142/63; PULSE 86; RESP 20; O2SAT 97
== END 2023-10-09 10:18 | disposition home or self-care (01) ==
LOC: EDH 06:35
DX: J01.90 Acute sinusitis, unspecified (principal); J20.8 Acute bronchitis due to other specified organisms; J45.20 Mild intermittent asthma, uncomplicated; I10 Essential (primary) hypertension; Z79.1 Long term (current) use of non-steroidal anti-inflammatories (NSAID); Z79.899 Other long term (current) drug therapy; Z20.822 Contact with and (suspected) exposure to COVID-19
CPT/HCPCS: 99284; 71045; 87635; 80048; 85025; 87880; 87420; 87804 ×2; 36415; 96372; 94640; C9803; J2930

== ENCOUNTER 2024-01-07 09:26 | Emergency (ER) | payer OTHER ==
[~2024-01-07] VITALS: Ht 182.9 cm; Wt 106.1 kg
[~2024-01-07 09:26] MED LIST changes: +ALBUHFA IH; +AUD IH; +CETI10CA5 PO; +FLUT16H NASAL
[2024-01-07 10:05] LABS: BASOPHILS # (AUTO) 0.03 K/uL (0.00-0.20); BASOPHILS % (AUTO) 0.5 % (0.0-5.0); EOSINOPHILS % (AUTO) 1.7 % (0.0-8.0); IMMATURE GRANULOCYTE ABSOLUTE 0.02 K/uL (0-1); LYMPHOCYTES # (AUTO) 1.5 K/uL (1.0-4.8); LYMPHOCYTES % (AUTO) 25.4 % (21.0-51.0); MEAN CORPUSCULAR HEMOGLOBIN 30.9 pg (27.0-33.0); MEAN CORPUSCULAR VOLUME 93.6 fL (79-99); MONOCYTES # (AUTO) 0.8 K/uL (0.1-1.0); MONOCYTES % (AUTO) 14.4 % (3.0-13.0); NEUTROPHILS # (AUTO) 3.4 K/uL (1.8-7.7); NEUTROPHILS % (AUTO) 57.7 % (40.0-77.0); PLATELET COUNT (AUTO) 202 K/uL (130-400); RED CELL DISTRIBUTION WIDTH 13.1 % (11.0-15.5); WHITE BLOOD COUNT (AUTO) 5.8 K/uL (4.8-10.8)
[2024-01-07 10:21] LABS: CREATININE 1.1 mg/dL (0.5-1.5)
[2024-01-07 10:25] LABS: ALBUMIN 3.8 g/dL (3.5-5.0); BILIRUBIN,TOTAL 0.9 mg/dL (0.2-1.0); TOTAL PROTEIN, SERUM 7.9 g/dL (6.0-8.3)
[2024-01-07 11:06] VITALS: BP 117/79; PULSE 66; RESP 18; O2SAT 97
[2024-01-07 11:09] LABS: APPEARANCE,URINE CLEAR (CLEAR); BILIRUBIN,URINE NEGATIVE (NEGATIVE); COLOR,URINE LIGHT-YELLOW (YELLOW); GLUCOSE, URINE (UA) NEGATIVE (NEGATIVE); KETONES,URINE NEGATIVE (NEGATIVE); LEUKOCYTE ESTERASE ,URINE 25 Leu/uL (NEGATIVE); NITRATE,URINE NEGATIVE (NEGATIVE); OCCULT BLOOD,URINE NEGATIVE (NEGATIVE); PROTEIN,URINE NEGATIVE (NEGATIVE); UROBILINOGEN,URINE 0.2 mg/dL (0.2-1.0)
[2024-01-07 11:14] LABS: ADD UA MICROSCOPIC YES
[2024-01-07 11:20] LABS: MUCUS,URINE RARE LPF (None Seen); SQUAMOUS EPITHELIAL CELL,UR RARE /HPF (0-2)
[2024-01-07] MEDS ORDERED: CEPH500B PO (11:26)
[2024-01-07] MEDS ORDERED: DOCU-133 PO (11:26)
[2024-01-07 11:43] LABS: INFLUENZA TYPE A Negative For Type A (NEGATIVE); INFLUENZA TYPE B Negative For Type B (NEGATIVE)
[2024-01-07 11:47] LABS: SARS-CoV-2, RNA, NAAT POSITIVE SARS CoV-2 (NEGATIVE)
[2024-01-07 11:49] LABS: RAPID GROUP A STREP negative (NEGATIVE)
[2024-01-07] MEDS ORDERED: BENZ200C53 PO (11:59)
== END 2024-01-07 12:36 | disposition home or self-care (01) ==
LOC: EDH 09:26
DX: U07.1 COVID-19 (principal); N39.0 Urinary tract infection, site not specified; K59.00 Constipation, unspecified; I10 Essential (primary) hypertension; Z79.899 Other long term (current) drug therapy; Z98.890 Other specified postprocedural states
CPT/HCPCS: 36415; 74018; 80053; 81001; 83690; 85025; 87635; 87804; 87880

== ENCOUNTER → 2024-05-13 | Outpatient (CLI) | payer MEDICARE ==
[~2024-05-13] MED LIST changes: +BENZ200C53 PO; +CEPH500B PO; +DOCU-133 PO
== END | disposition home or self-care (01) ==
LOC: SHCH 08:23
PROVIDERS: ATTEND Internal Medicine Cardiovascular Disease
DX: R07.9 Chest pain, unspecified (principal); I10 Essential (primary) hypertension
CPT/HCPCS: 93306

== ENCOUNTER → 2024-06-02 | Outpatient (CLI) | payer OTHER | END | disposition home or self-care (01) | LOC: RAH 13:29 | PROVIDERS: ATTEND Internal Medicine Cardiovascular Disease | DX: Z13.6 Encounter for screening for cardiovascular disorders (principal); R07.9 Chest pain, unspecified; I10 Essential (primary) hypertension | CPT/HCPCS: 75571 ==

== ENCOUNTER → 2024-08-14 | Outpatient (CLI) | payer MEDICARE, MEDICAID ==
[~2024-08-14] MED LIST changes: +ACYC-138 PO; +PRED20TA3 PO
[2024-08-14] MEDS: REGADENOSON 0.4 MG/5 ML PF SYG IVP ONE (11:19)
== END | disposition home or self-care (01) ==
LOC: SHCH 08:47
PROVIDERS: ATTEND Internal Medicine Cardiovascular Disease
DX: I11.9 Hypertensive heart disease without heart failure (principal); R07.9 Chest pain, unspecified; E78.5 Hyperlipidemia, unspecified
CPT/HCPCS: 78452; 93017; J2785; A9500 ×2

== ENCOUNTER 2024-08-18 10:39 | Emergency (ER) | payer MEDICARE, MEDICAID ==
[~2024-08-18] VITALS: Ht 182.9 cm; Wt 99.8 kg
[~2024-08-18 10:39] MED LIST changes: -ACYC-138 PO; -PRED20TA3 PO
[2024-08-18] MEDS ORDERED: IOHEXOL-350 75 ML VIAL IV ONE (10:46)
[2024-08-18 11:22] LABS: BASOPHILS # (AUTO) 0.05 K/uL (0.00-0.20); BASOPHILS % (AUTO) 0.8 % (0.0-5.0); EOSINOPHILS # (AUTO) 0.17 K/uL (0.00-0.70); EOSINOPHILS % (AUTO) 2.6 % (0.0-8.0); HEMATOCRIT 38.9 % (42-54); IMMATURE GRANULOCYTE ABSOLUTE 0.03 K/uL (0-1); LYMPHOCYTES % (AUTO) 30.1 % (21.0-51.0); MEAN CORPUSCULAR HEMOGLOBIN 31.1 pg (27.0-33.0); MEAN CORPUSCULAR HGB CONC 33.9 g/dL (32.0-36.0); MEAN CORPUSCULAR VOLUME 91.5 fL (79-99); MONOCYTES # (AUTO) 0.5 K/uL (0.1-1.0); NEUTROPHILS # (AUTO) 3.9 K/uL (1.8-7.7); PLATELET COUNT (AUTO) 219 K/uL (130-400); RED BLOOD CELL COUNT(AUTO) 4.25 MIL/uL (4.50-6.20); RED CELL DISTRIBUTION WIDTH 12.3 % (11.0-15.5); WHITE BLOOD COUNT (AUTO) 6.6 K/uL (4.8-10.8)
[2024-08-18 11:24] VITALS: TEMP 98
[2024-08-18 11:36] LABS: INR 1.06 (0.85-1.15); PROTHROMBIN TIME 11.4 SEC (9.6-11.6)
[2024-08-18 11:39] LABS: CREATININE 1.2 mg/dL (0.5-1.3); POTASSIUM 3.9 mmol/L (3.5-5.1)
[2024-08-18 11:47] LABS: B-TYPE NATRIURETIC PEPTIDE 36 pg/mL (0-100)
[2024-08-18] MEDS ORDERED: PRED20TA3 PO (12:21)
[2024-08-18] MEDS ORDERED: ACYC-138 PO (12:21)
[2024-08-18 13:36] VITALS: BP 117/78; PULSE 60; RESP 19; O2SAT 97
== END 2024-08-18 13:36 | disposition home or self-care (01) ==
LOC: EDH 10:39
DX: G51.0 Bell's palsy (principal); E78.00 Pure hypercholesterolemia, unspecified; I10 Essential (primary) hypertension; Z79.1 Long term (current) use of non-steroidal anti-inflammatories (NSAID); Z79.899 Other long term (current) drug therapy
CPT/HCPCS: 99285; 70496; 71045; 82550; 83721; 84484; 80048; 83880; 85025; 85610; 85730; 82948; 36415; 70498; 93005; 70450; Q9967